=== PATIENT | female | born 1995 | race African-American/Black ===

== ENCOUNTER 2017-02-23 17:41 | Emergency (ER) | payer MEDICAID ==
[~2017-02-23] VITALS: Ht 162.6 cm; Wt 53.0 kg
[2017-02-23] MEDS ORDERED: ACETAMINOPHEN 325MG TABLET PO ONE (20:45)
[2017-02-23 21:14] LABS: CLARITY URINE CLEAR (CLEAR); COLOR URINE YELLOW (YELLOW); GLUCOSE URINE NEGATIVE (NEGATIVE); KETONES URINE NEGATIVE (NEGATIVE); LEUKOCYTE ESTERASE URINE TRACE (NEGATIVE); NITRITE URINE NEGATIVE (NEGATIVE); OCCULT BLOOD URINE NEGATIVE (NEGATIVE); PH URINE 6.5 (4.5-8.0); PROTEIN URINE NEGATIVE (NEGATIVE); SPECIFIC GRAVITY URINE 1.009 (1.005-1.030); UROBILINOGEN URINE 0.2 E.U./dL (0.2-1.0)
[2017-02-23 21:42] LABS: BACTERIA URINE TRACE; RBC URINE 0-2 /hpf (0-2); SQUAMOUS EPITHELIAL CELL URINE 1+ /lpf (RARE/1+); WBC URINE 0-2 /hpf (0-2)
[2017-02-23 21:55] VITALS: BP 104/62
== END 2017-02-23 21:57 | disposition home or self-care (01) ==
LOC: ER 20:21
DX: O26.891 Other specified pregnancy related conditions, first trimester (principal); R10.9 Unspecified abdominal pain; R30.0 Dysuria; R39.11 Hesitancy of micturition; Z3A.01 Less than 8 weeks gestation of pregnancy; Z87.01 Personal history of pneumonia (recurrent); Z90.49 Acquired absence of other specified parts of digestive tract
CPT/HCPCS: 81001; 81025; 99283

== ENCOUNTER 2017-03-27 15:45 | Emergency (ER) | payer MEDICAID | END 2017-03-27 21:09 | disposition left against medical advice (07) | LOC: ER 21:07 | DX: O46.91 Antepartum hemorrhage, unspecified, first trimester (principal); Z3A.08 8 weeks gestation of pregnancy; Z53.21 Procedure and treatment not carried out due to patient leaving prior to being seen by health care provider ==